=== PATIENT | female | born 1995 | race Hispanic/Latino ===

== ENCOUNTER 2024-07-11 14:30 | Outpatient (RCR) | payer OTHER, MEDICAID, SELFPAY ==
--- NOTE | 2024-06-06 15:49 | PT.OIE ---
Current Diagnoses Cystocele, unspecified (06/06/24) Visit Care Team Role Provider Type Yajaira Hernandez PA-C Attending Provider Non-Staff Family Provider Primary Care Provider Referring Provider Specialty: Medical Address: [address] [place] [address], [id number] Email: Physical Therapy Initial Evaluation PT-OP-A Visit Information Start: 06/03/24 17:54 Freq: Status: Active Protocol: Document 06/06/24 13:08 LRN (Rec: 06/06/24 15:44 LRN [id number]) Out-Patient Physical Therapy Visit Information Visit Information Visit Type Initial Evaluation Visit Note Flat Drier, Roseanne Woodward, present throughout evaluation. Visit Start Time 13:08 Visit Stop Time 14:10 Visit Number 1 Evaluation Information Evaluation Date 06/06/24 Precautions Precautions Per intake form: Depression, liver disease PT-OP-B Current Condition Start: 06/03/24 17:54 Freq: Status: Active Protocol: Document 06/06/24 13:08 LRN (Rec: 06/06/24 15:44 LRN [id number]) Current Condition History of Current Condition Onset Date 6 months Current Complaints Pain in lower abdomen sometimes, pain is strong like contraction. History of Current Condition Through tube repairer. States she hurts a lot down there ( pointing to lower abdomen) and states she was told her uterus was sitting down low; therefore referred to PT. Pt main c/o is that she has pain with intercourse, and afterwards. She notes a whitish discharge after intercourse. Prior Treatments and Tests Medication for the discharge - one tablet. (no longer taking) Developmental History Developmental History 3 children-vaginal births. Last was 5 yrs ago, children ages 9, 7, 5. With first and last births had difficulties (lower abdominal pain). Son was first , required forceps, has had pain afterward. Treatment Goals Patient/Caregiver Goals Pt goals: To not have pain anymore because can't have intercourse due to bad pain, wants another baby but hasn't been able to get . Pt agreeable to HEP. Personal Factors Other Personal Factors That May Effect Mother of 3 children, ages 9, Therapy/Recovery 7, 5. Pt is Maltese speaking individual requiring tube repairer, primary chipewwa language - czech. Works 8 hrs/day making [employer] requiring standing for job. PT-OP-C Subjective Start: 06/03/24 17:54 Freq: Status: Active Protocol: Document 06/06/24 13:08 LRN (Rec: 06/06/24 15:44 LRN [id number]) Patient Questionnaires Pelvic Pain and Urgency/Frequency Patient Symptom Scale Pelvic Pain Score 29/35 OP-PT Pain Assessment Location L lower abdomen Pain Location Details Across lower abdomen, L side Intensity 9 Scale Used Numeric (0 - 10) R lower abdomen Pain Location Details Across lower abdomen, R side Intensity 8 Scale Used Numeric (0 - 10) Comments Pain Comments Pain at pubic symphysis with mild separation noted. PT-OP-I Pelvic Floor Start: 06/03/24 17:54 Freq: Status: Active Protocol: Document 06/06/24 13:08 LRN (Rec: 06/06/24 15:44 LRN [id number]) Pelvic Floor Assessment Urine Other Urinary Symptoms No urinary symptoms Bowel Other Bowel Symptoms BM 3x/week. Eugene Stool Chart Comments Type 6. Pelvic Clock Pelvic Clock 12-3 Tenderness Pelvic Clock 3-6 Tenderness Pelvic Clock 6-9 Tenderness Pelvic Clock 9-12 Tenderness Prolapse Cystocele Grade 3 Perineal Descent Resting Present Bearing Present Contraction Ability Manual Muscle Testing Left 1 Manual Muscle Testing Right 1 Manual Muscle Testing Anterior 0 Manual Muscle Testing Posterior 2 Muscle Endurance (Seconds) 0 Number of Quick Contractions In 10 1 Seconds Comments Pelvic Floor Comments Redness at upper inner fold of the Labia Majora. PT-OP-J Posture/Palpation/Skin Start: 06/03/24 17:54 Freq: Status: Active Protocol: Document 06/06/24 13:08 LRN (Rec: 06/06/24 15:44 LRN [id number]) Posture Evaluation Position Standing Head/C-Spine Posture Forward Head L-Spine Posture Increased Lordosis Shoulder Posture (R) Elevated Pelvis Posture Anteriorly Tilted,(R) ASIS Posterior Knee Posture (L) Genu Varus,(R) Genu Varus Comments Posture Comments Straightened upper T/S. PT-OP-K Range of Motion Start: 06/03/24 17:54 Freq: Status: Active Protocol: Document 06/06/24 13:08 LRN (Rec: 06/06/24 15:44 LRN [id number]) Lumbar Spine Range of Motion Lumbar Spine Active Degrees Testing Position Standing Flexion 63 Extension 12 Rotation Left 50 Rotation Right 50 Lateral Flexion Left 18 Lateral Flexion Right 18 Hip Goniometric Range of Motion Hip Right Passive Testing Position Supine Internal Rotation 55 External Rotation 40 Left Passive Testing Position Supine Internal Rotation 50 External Rotation 40 PT-OP-M Strength Start: 06/03/24 17:54 Freq: Status: Active Protocol: Document 06/06/24 13:08 LRN (Rec: 06/06/24 15:44 LRN [id number]) Trunk Strength Trunk Manual Muscle Testing Core Stabilization Pt was not able to maintain core stability with MMT of LE' s. Hip Strength Hip Manual Muscle Testing Right Extension (S1) 3 Fair Internal Rotation 3 Fair Comments Strength is 5/5 except as indicated above. Left Flexion (L2) 4 Good Extension (S1) 3 Fair Adduction 3+ Fair+ Internal Rotation 3 Fair Comments Strength is 5/5 except as indicated above. PT-OP-Q Treatments Start: 06/03/24 17:54 Freq: Status: Active Protocol: Document 06/06/24 13:08 LRN (Rec: 06/06/24 15:44 LRN [id number]) Therapeutic Activity Therapeutic Activity Transfer training Name Scooting to L side, Supine<> sit log roll method with exhale on exertion. Reps/Minutes 2' Comments Pt required phys & verbal cuing for transfer. Self-Care/Home Management Treatment Education Other Education All education and information shared with pt was through an tube repairer. Informed pt that if an tube repairer is needed pt can request use of tube repairer or a phone tube repairer would be used. Extra time needed to discuss results of evaluation, goals, treatment, and plan of care ( POC) with pt (via tube repairer) , attendance/cx/dns policy reviewed; pt agreeable to evaluation, goals, treatment, attendance/cx/dns policy and POC. Activities Self-Care/Home Management Activities Issued self care program: sup to side, & sidelie to sit. I /S pt to perform transfer getting in/out of bed. Written I/S for sit<>stand transfer with exhale/Kegel. Issued & reviewed HEP: Kegel ex's and discussed exercise of Quick Flicks, Long Holds. PT-OP-T Assessment and Plan Start: 06/03/24 17:54 Freq: Status: Active Protocol: Document 06/06/24 13:08 LRN (Rec: 06/06/24 15:44 LRN [id number]) Physical Therapy Assessment Rehab Potential Rehabilitation Potential Good Evaluation Complexity Number of Personal Factors/Comorbidities 3 or More Number of Body Systems Impaired 4 or More Clinical Presentation at Evaluation Evolving Impairments Impairments Activity Tolerance,Pain, Posture,ROM,Soft Tissue Mobility,Strength,Transfers Goals Three Impairment Lower abdominal pain limiting standing time and ability to attend work. Short Term Goal (STG) Pt educated in proper standing posture to decrease strain at pubic symphysis. STG Duration 07/04/24 Android Programmer Goal (LTG) Improve abdominal soft tissue mobility and pelvic stability to minimze lower abdominal pain and pubic symphysis pain to 0-2/10, with pt able to tolerate baseline standing for her job. LTG Duration 12 wks-08/29/24 Two Impairment Pain with intercourse Short Term Goal (STG) Pt will be educated in pain management for intercourse ( excessive use of lubrication), and MD cream for tissue health. STG Duration 6 wks-07/18/24 Custodial Goal (LTG) Decrease lower abdominal pain with intercourse, with pt able to tolerate activity without pain. LTG Duration 12 wks-08/29/24 One Impairment Lacks appropriate self care HEP. Short Term Goal (STG) Pt educated and will demonstrate log roll transfer to lessen core abdominal pressure and educated in proper body mechanics for ADLs . 06/06/24: Pt educated in log roll method for supine>sit. STG Duration 07/04/24 Custodial Goal (LTG) Pt will be independent in appropriate self care HEP of PF/core strengthening & hip ( IR) stretches. LTG Duration 12 wks-08/29/24 Assessment Summary Assessment Pt is a 28 yo chipe[place] Maltese speaking female who presents with grade 3 cystocele in supine, Symphysis Pubis Dysfunction (SPD), PF tenderness, tenderness/redness on the R labia majora fold, both superficial and deep PF muscles around the PF clock, and tenderness in the mid and lower abdomen (level of the uterus), and her PF muscles are very weak. See recommendation below. She demonstrates postural changes of increased lordosis and possible pelvic obliquity as seen in standing (L SIJ is posterior). Hip ER mobility is limited as is strength of core and hip extensors/IR's, L hip flexors and AD's. Extra time was needed as a cushion former was needed throughout the evaluation. 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 Physical Therapy Plan Frequency and Duration Frequency of Treatment 1x/Week Duration of treatment (weeks) 12 Plan of Care Start Date 06/06/24 Plan of Care End Date 08/29/24 Therapeutic Interventions Therapeutic Interventions Home Exercise Program,Manual Therapy,Neuromuscular Re- education,Self-Care/Home Management,Soft Tissue Mobilization,Therapeutic Activities,Therapeutic Exercises Other Referrals/Consults Referrals/Consults Recommended Recommend pt be assessed for tissue health of her Labia majora inner fold and vaginal canal with possible use of vaginal cream to improve tissue health. Next Visit Focus/Plan Next Note Type Treatment Note Next Visit Plan Next: Trial stabilization for SPD (use of blue strap), and review/practice log roll & transfers to reduce core pressure, & Kegel ex's. Educated pt proper standing posture and body mechanics for job. Manual therapy for lower abdomen (urachus) and bladder/ uterus lift/?round lig. Ther Ex: stretch to hip ER's/ hamstings, and strengthen IR's , TA (4 pt, hands/knees push) /core strengthening ( it conor knee flex/ext). HEP: Pt to be on low level walking program. Vemg biofeedback PF strengthening or PF stim, when vaginal vault is no longer tender.
--- NOTE | 2024-06-06 15:50 | PT.OPPOC ---
Physical, Occupational & Speech Therapy At [facility] Current Diagnoses Cystocele, unspecified (06/06/24) Visit Care Team Role Provider Type Yajaira Hernandez PA-C Attending Provider Non-Staff Family Provider Primary Care Provider Referring Provider Specialty: Medical Address: [address] [place] [address], [id number] Email: Plan Of Care PT-OP-B Current Condition Start: 06/03/24 17:54 Freq: Status: Active Protocol: Document 06/06/24 13:08 LRN (Rec: 06/06/24 15:44 LRN [id number]) Current Condition History of Current Condition Onset Date 6 months Current Complaints Pain in lower abdomen sometimes, pain is strong like contraction. History of Current Condition Through manager spa. States she hurts a lot down there ( pointing to lower abdomen) and states she was told her uterus was sitting down low; therefore referred to PT. Pt main c/o is that she has pain with intercourse, and afterwards. She notes a whitish discharge after intercourse. Prior Treatments and Tests Medication for the discharge - one tablet. (no longer taking) Developmental History Developmental History 3 children-vaginal births. Last was 5 yrs ago, children ages 9, 7, 5. With first and last births had difficulties (lower abdominal pain). Son was first , required forceps, has had pain afterward. Treatment Goals Patient/Caregiver Goals Pt goals: To not have pain anymore because can't have intercourse due to bad pain, wants another baby but hasn't been able to get . Pt agreeable to HEP. Personal Factors Other Personal Factors That May Effect Mother of 3 children, ages 9, Therapy/Recovery 7, 5. Pt is Turkish speaking individual requiring manager spa, primary chilkat language - ghanaian. Works 8 hrs/day making [employer] requiring standing for job. PT-OP-T Assessment and Plan Start: 06/03/24 17:54 Freq: Status: Active Protocol: Document 06/06/24 13:08 LRN (Rec: 06/06/24 15:44 LRN [id number]) Physical Therapy Assessment Rehab Potential Rehabilitation Potential Good Evaluation Complexity Number of Personal Factors/Comorbidities 3 or More Number of Body Systems Impaired 4 or More Clinical Presentation at Evaluation Evolving Impairments Impairments Activity Tolerance,Pain, Posture,ROM,Soft Tissue Mobility,Strength,Transfers Goals Three Impairment Lower abdominal pain limiting standing time and ability to attend work. Short Term Goal (STG) Pt educated in proper standing posture to decrease strain at pubic symphysis. STG Duration 07/04/24 Penitentiary Goal (LTG) Improve abdominal soft tissue mobility and pelvic stability to minimze lower abdominal pain and pubic symphysis pain to 0-2/10, with pt able to tolerate baseline standing for her job. LTG Duration 12 wks-08/29/24 Two Impairment Pain with intercourse Short Term Goal (STG) Pt will be educated in pain management for intercourse ( excessive use of lubrication), and MD cream for tissue health. STG Duration 6 wks-07/18/24 Penitentiary Goal (LTG) Decrease lower abdominal pain with intercourse, with pt able to tolerate activity without pain. LTG Duration 12 wks-08/29/24 One Impairment Lacks appropriate self care HEP. Short Term Goal (STG) Pt educated and will demonstrate log roll transfer to lessen core abdominal pressure and educated in proper body mechanics for ADLs . 06/06/24: Pt educated in log roll method for supine>sit. STG Duration 07/04/24 Penitentiary Goal (LTG) Pt will be independent in appropriate self care HEP of PF/core strengthening & hip ( IR) stretches. LTG Duration 12 wks-08/29/24 Assessment Summary Assessment Pt is a 28 yo [place]il[place] Turkish speaking female who presents with grade 3 cystocele in supine, Symphysis Pubis Dysfunction (SPD), PF tenderness, tenderness/redness on the R labia majora fold, both superficial and deep PF muscles around the PF clock, and tenderness in the mid and lower abdomen (level of the uterus), and her PF muscles are very weak. See recommendation below. She demonstrates postural changes of increased lordosis and possible pelvic obliquity as seen in standing (L SIJ is posterior). Hip ER mobility is limited as is strength of core and hip extensors/IR's, L hip flexors and AD's. Extra time was needed as a bonbon cream warmer was needed throughout the evaluation. 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 Physical Therapy Plan Frequency and Duration Frequency of Treatment 1x/Week Duration of treatment (weeks) 12 Plan of Care Start Date 06/06/24 Plan of Care End Date 08/29/24 Therapeutic Interventions Therapeutic Interventions Home Exercise Program,Manual Therapy,Neuromuscular Re- education,Self-Care/Home Management,Soft Tissue Mobilization,Therapeutic Activities,Therapeutic Exercises Other Referrals/Consults Referrals/Consults Recommended Recommend pt be assessed for tissue health of her Labia majora inner fold and vaginal canal with possible use of vaginal cream to improve tissue health. Next Visit Focus/Plan Next Note Type Treatment Note Next Visit Plan Next: Trial stabilization for SPD (use of blue strap), and review/practice log roll & transfers to reduce core pressure, & Kegel ex's. Educated pt proper standing posture and body mechanics for job. Manual therapy for lower abdomen (urachus) and bladder/ uterus lift/?round lig. Ther Ex: stretch to hip ER's/ hamstings, and strengthen IR's , TA (4 pt, hands/knees push) /core strengthening ( it conor knee flex/ext). HEP: Pt to be on low level walking program. Vemg biofeedback PF strengthening or PF stim, when vaginal vault is no longer tender. Plan of Care Dates Plan of Care Start Date 06/06/24 Plan of Care End Date 08/29/24 Electronically Signed by: Yareli Arambula, PT 06/06/24 2323 If you are in agreement with this Plan of Care, please return a signed and dated copy. I have reviewed this Plan of Care and certify that the skilled therapy services above are required to meet the patient?s needs. Physician Signature Date Printed Name and Credentials Clinical Instructor Signature Printed Name and Credentials
--- NOTE | 2024-06-13 16:19 | PT.OTN ---
Current Diagnoses Cystocele, unspecified (06/06/24) Physical Therapy Treatment Note PT-OP-A Visit Information Start: 06/03/24 17:54 Freq: Status: Active Protocol: Document 06/13/24 10:36 LRN (Rec: 06/13/24 11:21 LRN [id number]) Out-Patient Physical Therapy Visit Information Visit Information Visit Type Treatment Note Visit Note Marketing Traffic Coordinator, Roseanne Woodward, present throughout evaluation. Visit Start Time 10:36 Visit Stop Time 11:19 Visit Number 2 Evaluation Information Evaluation Date 06/06/24 Precautions Precautions Per intake form: Depression, liver disease PT-OP-B Current Condition Start: 06/03/24 17:54 Freq: Status: Active Protocol: Document 06/06/24 13:08 LRN (Rec: 06/06/24 15:44 LRN [id number]) Current Condition History of Current Condition Onset Date 6 months Current Complaints Pain in lower abdomen sometimes, pain is strong like contraction. History of Current Condition Through tank setter helper. States she hurts a lot down there ( pointing to lower abdomen) and states she was told her uterus was sitting down low; therefore referred to PT. Pt main c/o is that she has pain with intercourse, and afterwards. She notes a whitish discharge after intercourse. Prior Treatments and Tests Medication for the discharge - one tablet. (no longer taking) Developmental History Developmental History 3 children-vaginal births. Last was 5 yrs ago, children ages 9, 7, 5. With first and last births had difficulties (lower abdominal pain). Son was first , required forceps, has had pain afterward. Treatment Goals Patient/Caregiver Goals Pt goals: To not have pain anymore because can't have intercourse due to bad pain, wants another baby but hasn't been able to get . Pt agreeable to HEP. Personal Factors Other Personal Factors That May Effect Mother of 3 children, ages 9, Therapy/Recovery 7, 5. Pt is Sami speaking individual requiring tank setter helper, primary [place] language - panamanian. Works 8 hrs/day making [employer] requiring standing for job. PT-OP-C Subjective Start: 06/03/24 17:54 Freq: Status: Active Protocol: Document 06/13/24 10:36 LRN (Rec: 06/13/24 11:21 LRN [id number]) OP-PT Subjective Patient Comments Patient Comments Practiced how to get out of bed and breathing carrying things. Haven't slept well and had a lot of appts. In a little pain because on her period, pain rated 5/10 in lower abdomen. PT-OP-I Pelvic Floor Start: 06/03/24 17:54 Freq: Status: Active Protocol: Document 06/06/24 13:08 LRN (Rec: 06/06/24 15:44 LRN [id number]) Pelvic Floor Assessment Urine Other Urinary Symptoms No urinary symptoms Bowel Other Bowel Symptoms BM 3x/week. [place] Stool Chart Comments Type 6. Pelvic Clock Pelvic Clock 12-3 Tenderness Pelvic Clock 3-6 Tenderness Pelvic Clock 6-9 Tenderness Pelvic Clock 9-12 Tenderness Prolapse Cystocele Grade 3 Perineal Descent Resting Present Bearing Present Contraction Ability Manual Muscle Testing Left 1 Manual Muscle Testing Right 1 Manual Muscle Testing Anterior 0 Manual Muscle Testing Posterior 2 Muscle Endurance (Seconds) 0 Number of Quick Contractions In 10 1 Seconds Comments Pelvic Floor Comments Redness at upper inner fold of the Labia Majora. PT-OP-J Posture/Palpation/Skin Start: 06/03/24 17:54 Freq: Status: Active Protocol: Document 06/06/24 13:08 LRN (Rec: 06/06/24 15:44 LRN [id number]) Posture Evaluation Position Standing Head/C-Spine Posture Forward Head L-Spine Posture Increased Lordosis Shoulder Posture (R) Elevated Pelvis Posture Anteriorly Tilted,(R) ASIS Posterior Knee Posture (L) Genu Varus,(R) Genu Varus Comments Posture Comments Straightened upper T/S. PT-OP-K Range of Motion Start: 06/03/24 17:54 Freq: Status: Active Protocol: Document 06/06/24 13:08 LRN (Rec: 06/06/24 15:44 LRN [id number]) Lumbar Spine Range of Motion Lumbar Spine Active Degrees Testing Position Standing Flexion 63 Extension 12 Rotation Left 50 Rotation Right 50 Lateral Flexion Left 18 Lateral Flexion Right 18 Hip Goniometric Range of Motion Hip Right Passive Testing Position Supine Internal Rotation 55 External Rotation 40 Left Passive Testing Position Supine Internal Rotation 50 External Rotation 40 PT-OP-M Strength Start: 06/03/24 17:54 Freq: Status: Active Protocol: Document 06/06/24 13:08 LRN (Rec: 06/06/24 15:44 LRN [id number]) Trunk Strength Trunk Manual Muscle Testing Core Stabilization Pt was not able to maintain core stability with MMT of LE' s. Hip Strength Hip Manual Muscle Testing Right Extension (S1) 3 Fair Internal Rotation 3 Fair Comments Strength is 5/5 except as indicated above. Left Flexion (L2) 4 Good Extension (S1) 3 Fair Adduction 3+ Fair+ Internal Rotation 3 Fair Comments Strength is 5/5 except as indicated above. PT-OP-Q Treatments Start: 06/03/24 17:54 Freq: Status: Active Protocol: Document 06/13/24 10:36 LRN (Rec: 06/13/24 11:21 LRN [id number]) Therapeutic Exercises Supine Exercises TA tightening Reps/Minutes 10' Comments Extra time needed for training through tank setter helper Sidelying Exercises TA tightening Side bilateral Reps/Minutes 3 breath holds x 8 each side. Comments Extra time to train using tank setter helper. Therapeutic Activity Therapeutic Activity Transfer training Name Stand<>Sit<>Supine<>sit log roll method with exhale on exertion. Reps/Minutes 6' Comments Pt required phys & verbal cuing for transfer. Much training needed to maintain stable core. Pt kept rotating at trunk Self-Care/Home Management Treatment Education Other Education Extended discussion through tank setter helper regarding use of abdominal support or strap around SIJ to decrease lower abdominal pain. Pt interested in belt, but encouraged pt to obtain control top underwear for abdominal support after determining pt did not have a belt available at home to try for pain management. Activities Self-Care/Home Management Activities Issued & reviewed through tank setter helper HEP Handouts: TA strengthening in supine, sit & 4 pt. PT-OP-T Assessment and Plan Start: 06/03/24 17:54 Freq: Status: Active Protocol: Document 06/13/24 10:36 LRN (Rec: 06/13/24 11:21 LRN [id number]) Physical Therapy Assessment Goals Three Impairment Lower abdominal pain limiting standing time and ability to attend work. Short Term Goal (STG) Pt educated in proper standing posture to decrease strain at pubic symphysis. STG Duration 07/04/24 Half-Way Goal (LTG) Improve abdominal soft tissue mobility and pelvic stability to minimze lower abdominal pain and pubic symphysis pain to 0-2/10, with pt able to tolerate baseline standing for her job. LTG Duration 12 wks-08/29/24 Two Impairment Pain with intercourse Short Term Goal (STG) Pt will be educated in pain management for intercourse ( excessive use of lubrication), and cream for tissue health. STG Duration 6 wks-07/18/24 Half-Way Goal (LTG) Decrease lower abdominal pain with intercourse, with pt able to tolerate activity without pain. LTG Duration 12 wks-08/29/24 One Impairment Lacks appropriate self care HEP. Short Term Goal (STG) Pt educated and will demonstrate log roll transfer to lessen core abdominal pressure and educated in proper body mechanics for ADLs . 06/06/24: Pt educated in log roll method for supine>sit. 06/13/24: Reviewed log roll method with breath/Kegel STG Duration 07/04/24 progressed 06/13/24 (educ body mech/ADLs) Target Developer Goal (LTG) Pt will be independent in appropriate self care HEP of PF/core strengthening & hip ( IR) stretches. 06/13/24: HEP: TA strengthening in sup, sit, 4 pt LTG Duration 12 wks-08/29/24 progressed 06/13/24 Assessment Summary Assessment 28 yo [place] Sami mother of three, with grade 3 cystocele , SPD. Tenderness present around superficial/deep PF clock and mid/lower abdomen, R labia majora fold tenderness/ redness, PF muscles are very weak, as well as core and hip extensors/IR's, L hip flexors and AD's. Hip ER mobility is limited. She demonstrates postural changes of increased lordosis and possible pelvic obliquity (L SIJ is posterior) . Extra time was needed as a financial foundations associate was needed throughout the treatment. Today, pt had lwer abdominal pain relief with blue strap around her lower abdomen and SIJ. Physical Therapy Plan Frequency and Duration Frequency of Treatment 1x/Week Duration of treatment (weeks) 12 Plan of Care Start Date 06/06/24 Plan of Care End Date 08/29/24 Next Visit Focus/Plan Next Note Type Treatment Note Next Visit Plan Next: Trial stabilization for SPD (SIJ support). Check for pt compliance with log roll & transfers (to reduce core pressure) & Kegel ex's. Educated pt proper standing posture and body mechanics for job. Review HEP: TA (4 pt, hands/knees push) /core strengthening Manual therapy for lower abdomen (urachus) and bladder/ uterus lift/?round lig. Ther Ex: stretch to hip ER's/ hamstings, and strengthen IR's . HEP: Pt to be on low level walking program. When vaginal vault no longer tender try Vemg biofeedback PF strengthening or PF stim.
--- NOTE | 2024-06-20 15:53 | PT.OTN ---
Current Diagnoses Cystocele, unspecified (06/20/24) Physical Therapy Treatment Note PT-OP-A Visit Information Start: 06/03/24 17:54 Freq: Status: Active Protocol: Document 06/20/24 14:39 LRN (Rec: 06/20/24 15:53 LRN [id number]) Out-Patient Physical Therapy Visit Information Visit Information Visit Type Treatment Note Visit Note Paratransit Driver, Gerard Villegas, present throughout evaluation. Visit Start Time 14:39 Visit Stop Time 15:19 Visit Number 3 Evaluation Information Evaluation Date 06/06/24 Precautions Precautions Per intake form: Depression, liver disease PT-OP-B Current Condition Start: 06/03/24 17:54 Freq: Status: Active Protocol: Document 06/06/24 13:08 LRN (Rec: 06/06/24 15:44 LRN [id number]) Current Condition History of Current Condition Onset Date 6 months Current Complaints Pain in lower abdomen sometimes, pain is strong like contraction. History of Current Condition Through commercial subcontractor. States she hurts a lot down there ( pointing to lower abdomen) and states she was told her uterus was sitting down low; therefore referred to PT. Pt main c/o is that she has pain with intercourse, and afterwards. She notes a whitish discharge after intercourse. Prior Treatments and Tests Medication for the discharge - one tablet. (no longer taking) Developmental History Developmental History 3 children-vaginal births. Last was 5 yrs ago, children ages 9, 7, 5. With first and last births had difficulties (lower abdominal pain). Son was first , required forceps, has had pain afterward. Treatment Goals Patient/Caregiver Goals Pt goals: To not have pain anymore because can't have intercourse due to bad pain, wants another baby but hasn't been able to get . Pt agreeable to HEP. Personal Factors Other Personal Factors That May Effect Mother of 3 children, ages 9, Therapy/Recovery 7, 5. Pt is Mosotho speaking individual requiring commercial subcontractor, primary [place] language - estonian. Works 8 hrs/day making [employer] requiring standing for job. PT-OP-C Subjective Start: 06/03/24 17:54 Freq: Status: Active Protocol: Document 06/20/24 14:39 LRN (Rec: 06/20/24 15:53 LRN [id number]) OP-PT Subjective Patient Comments Patient Comments States last time doing well, but now worse. Back is more painful. Not too much front pain. Did wear a belt around the hips at work and has decreased the pain in the front. PT-OP-I Pelvic Floor Start: 06/03/24 17:54 Freq: Status: Active Protocol: Document 06/06/24 13:08 LRN (Rec: 06/06/24 15:44 LRN [id number]) Pelvic Floor Assessment Urine Other Urinary Symptoms No urinary symptoms Bowel Other Bowel Symptoms BM 3x/week. [place] Stool Chart Comments Type 6. Pelvic Clock Pelvic Clock 12-3 Tenderness Pelvic Clock 3-6 Tenderness Pelvic Clock 6-9 Tenderness Pelvic Clock 9-12 Tenderness Prolapse Cystocele Grade 3 Perineal Descent Resting Present Bearing Present Contraction Ability Manual Muscle Testing Left 1 Manual Muscle Testing Right 1 Manual Muscle Testing Anterior 0 Manual Muscle Testing Posterior 2 Muscle Endurance (Seconds) 0 Number of Quick Contractions In 10 1 Seconds Comments Pelvic Floor Comments Redness at upper inner fold of the Labia Majora. PT-OP-J Posture/Palpation/Skin Start: 06/03/24 17:54 Freq: Status: Active Protocol: Document 06/06/24 13:08 LRN (Rec: 06/06/24 15:44 LRN [id number]) Posture Evaluation Position Standing Head/C-Spine Posture Forward Head L-Spine Posture Increased Lordosis Shoulder Posture (R) Elevated Pelvis Posture Anteriorly Tilted,(R) ASIS Posterior Knee Posture (L) Genu Varus,(R) Genu Varus Comments Posture Comments Straightened upper T/S. PT-OP-K Range of Motion Start: 06/03/24 17:54 Freq: Status: Active Protocol: Document 06/06/24 13:08 LRN (Rec: 06/06/24 15:44 LRN [id number]) Lumbar Spine Range of Motion Lumbar Spine Active Degrees Testing Position Standing Flexion 63 Extension 12 Rotation Left 50 Rotation Right 50 Lateral Flexion Left 18 Lateral Flexion Right 18 Hip Goniometric Range of Motion Hip Right Passive Testing Position Supine Internal Rotation 55 External Rotation 40 Left Passive Testing Position Supine Internal Rotation 50 External Rotation 40 PT-OP-M Strength Start: 06/03/24 17:54 Freq: Status: Active Protocol: Document 06/06/24 13:08 LRN (Rec: 06/06/24 15:44 LRN [id number]) Trunk Strength Trunk Manual Muscle Testing Core Stabilization Pt was not able to maintain core stability with MMT of LE' s. Hip Strength Hip Manual Muscle Testing Right Extension (S1) 3 Fair Internal Rotation 3 Fair Comments Strength is 5/5 except as indicated above. Left Flexion (L2) 4 Good Extension (S1) 3 Fair Adduction 3+ Fair+ Internal Rotation 3 Fair Comments Strength is 5/5 except as indicated above. PT-OP-Q Treatments Start: 06/03/24 17:54 Freq: Status: Active Protocol: Document 06/20/24 14:39 LRN (Rec: 06/20/24 15:53 LRN [id number]) Therapeutic Exercises Supine Exercises TA tightening Supine Exercise Name Jimmy heel slide Reps/Minutes 4' Comments Pt told to DC for now due to onset of LBP with ex. Prone Exercises BRO Reps/Minutes 2' Sidelying Exercises TA tightening Side bilateral Reps/Minutes (8') 3 breath holds x 5 each side. Comments Extra time to train using commercial subcontractor. Other Exercises 4 pt Other Exercise Name TA tightening Reps/Minutes (10') 3 breath hold x 10 Comments Extra time needed to get pt onto her hands/knees for ex Therapeutic Activity Therapeutic Activity Lifting/moving Name Body mechanics training for lifting at work and for rotating with wgt. Reps/Minutes 4' Transfer training Name Stand<>Sit<>Supine<>sit log roll method with exhale on exertion. Reps/Minutes 6' Comments Pt required phys & verbal cuing for transfer. Much training needed to maintain stable core. Pt kept rotating at trunk Self-Care/Home Management Treatment Education Other Education Pt educated in fit and donning of SIJ/Pubic symphysis belt with discussion of how pt can obtain belt. Recommended pt check online for donald and issued handout for name of belt. Activities Self-Care/Home Management Activities Issued HEP: 4 pt: TA tightening, and BRO trunk extension. PT-OP-T Assessment and Plan Start: 06/03/24 17:54 Freq: Status: Active Protocol: Document 06/20/24 14:39 LRN (Rec: 06/20/24 15:53 LRN [id number]) Physical Therapy Assessment Goals Three Impairment Lower abdominal pain limiting standing time and ability to attend work. Short Term Goal (STG) Pt educated in proper standing posture to decrease strain at pubic symphysis. STG Duration 07/04/24 Usp Goal (LTG) Improve abdominal soft tissue mobility and pelvic stability to minimze lower abdominal pain and pubic symphysis pain to 0-2/10, with pt able to tolerate baseline standing for her job. LTG Duration 12 wks-08/29/24 Two Impairment Pain with intercourse Short Term Goal (STG) Pt will be educated in pain management for intercourse ( excessive use of lubrication), and MD cream for tissue health. STG Duration 6 wks-07/18/24 Industrial Design Engineer Goal (LTG) Decrease lower abdominal pain with intercourse, with pt able to tolerate activity without pain. LTG Duration 12 wks-08/29/24 One Impairment Lacks appropriate self care HEP. Short Term Goal (STG) Pt educated and will demonstrate log roll transfer to lessen core abdominal pressure and educated in proper body mechanics for ADLs . 06/06/24: Pt educated in log roll method for supine>sit. 06/13/24: Reviewed log roll method with breath/Kegel. 06/20/24: Pt educated in correct body mechanics for lifting and moving objects for work. STG Duration 07/04/24 progressed 06/20/24 (educ body mech for ADLs) Industrial Design Engineer Goal (LTG) Pt will be independent in appropriate self care HEP of PF/core strengthening & hip ( IR) stretches. 06/13/24: HEP: TA strengthening in sup, sit, 4 pt. 06/20/24: HEP: HEP: 4 pt TA tightening, and BRO trunk extension. LTG Duration 12 wks-08/29/24 progressed 06/20/24 Assessment Summary Assessment 28 yo [place] female, with grade 3 cystocele, SPD. Initially tenderness around superficial/deep PF clock and mid/lower abdomen, R labia majora fold tenderness/redness , very weak PF, core & hip ext/flexors/IR/AD muscles. Hip ER mobility is limited. Postural changes of increased lordosis and possible pelvic obliquity (L SIJ is posterior) . Today, extra time needed as a child care sitter was needed throughout the treatment. Not obvious that pt is doing proper log roll method for transfers. Her LBP appears worse than abdominal pain, rated 7/10. She felt use of SIJ belt for SPD was helpful in decreasing her pain and she will purchase online. Pt had poor body mechanics for lifting at work, but much improved after training. Much extra time was taken to teach pt HEP as explanation was through commercial subcontractor, who was behind a curtain. Physical Therapy Plan Frequency and Duration Frequency of Treatment 1x/Week Duration of treatment (weeks) 12 Plan of Care Start Date 06/06/24 Plan of Care End Date 08/29/24 Next Visit Focus/Plan Next Note Type Treatment Note Next Visit Plan Next: Assess if pt obtained SIJ/SPD support online. Check for pt compliance with log roll & transfers (to reduce core pressure) & Kegel ex's. Review HEP: TA (4 pt, hands/ knees push). Educate proper body mechanics for ADLs & in proper standing posture to decrease strain at pubic symphysis. Manual therapy for lower abdomen (urachus) and bladder/ uterus lift/?round lig. Ther Ex: stretch to hip ER's/ hamstings, and strengthen IR's . HEP: Pt to be on low level walking program. When vaginal vault no longer tender try Vemg biofeedback PF strengthening or PF stim.
--- NOTE | 2024-06-23 16:14 | PT.OTN ---
Current Diagnoses Cystocele, unspecified (06/23/24) Physical Therapy Treatment Note PT-OP-A Visit Information Start: 06/03/24 17:54 Freq: Status: Active Protocol: Document 06/23/24 13:02 LRN (Rec: 06/23/24 13:46 LRN [id number]) Out-Patient Physical Therapy Visit Information Visit Information Visit Type Treatment Note Visit Note Contract Technician, Beto present per phone throughout evaluation. Visit Start Time 13:02 Visit Stop Time 13:42 Visit Number 4 Evaluation Information Evaluation Date 06/06/24 Precautions Precautions Per intake form: Depression, liver disease PT-OP-B Current Condition Start: 06/03/24 17:54 Freq: Status: Active Protocol: Document 06/06/24 13:08 LRN (Rec: 06/06/24 15:44 LRN [id number]) Current Condition History of Current Condition Onset Date 6 months Current Complaints Pain in lower abdomen sometimes, pain is strong like contraction. History of Current Condition Through spanish medical interpreter. States she hurts a lot down there ( pointing to lower abdomen) and states she was told her uterus was sitting down low; therefore referred to PT. Pt main c/o is that she has pain with intercourse, and afterwards. She notes a whitish discharge after intercourse. Prior Treatments and Tests Medication for the discharge - one tablet. (no longer taking) Developmental History Developmental History 3 children-vaginal births. Last was 5 yrs ago, children ages 9, 7, 5. With first and last births had difficulties (lower abdominal pain). Son was first , required forceps, has had pain afterward. Treatment Goals Patient/Caregiver Goals Pt goals: To not have pain anymore because can't have intercourse due to bad pain, wants another baby but hasn't been able to get . Pt agreeable to HEP. Personal Factors Other Personal Factors That May Effect Mother of 3 children, ages 9, Therapy/Recovery 7, 5. Pt is Uruguayan speaking individual requiring spanish medical interpreter, primary [place] language - yemeni. Works 8 hrs/day making [employer] requiring standing for job. PT-OP-C Subjective Start: 06/03/24 17:54 Freq: Status: Active Protocol: Document 06/23/24 13:02 LRN (Rec: 06/23/24 13:46 LRN [id number]) OP-PT Subjective Patient Comments Patient Comments Per spanish medical interpreter pt reports no change. States she did not have time to check into getting a SP belt. Lower abdominal pain rated 7-8/10, no low back pain. PT-OP-I Pelvic Floor Start: 06/03/24 17:54 Freq: Status: Active Protocol: Document 06/06/24 13:08 LRN (Rec: 06/06/24 15:44 LRN [id number]) Pelvic Floor Assessment Urine Other Urinary Symptoms No urinary symptoms Bowel Other Bowel Symptoms BM 3x/week. [place] Stool Chart Comments Type 6. Pelvic Clock Pelvic Clock 12-3 Tenderness Pelvic Clock 3-6 Tenderness Pelvic Clock 6-9 Tenderness Pelvic Clock 9-12 Tenderness Prolapse Cystocele Grade 3 Perineal Descent Resting Present Bearing Present Contraction Ability Manual Muscle Testing Left 1 Manual Muscle Testing Right 1 Manual Muscle Testing Anterior 0 Manual Muscle Testing Posterior 2 Muscle Endurance (Seconds) 0 Number of Quick Contractions In 10 1 Seconds Comments Pelvic Floor Comments Redness at upper inner fold of the Labia Majora. PT-OP-J Posture/Palpation/Skin Start: 06/03/24 17:54 Freq: Status: Active Protocol: Document 06/06/24 13:08 LRN (Rec: 06/06/24 15:44 LRN [id number]) Posture Evaluation Position Standing Head/C-Spine Posture Forward Head L-Spine Posture Increased Lordosis Shoulder Posture (R) Elevated Pelvis Posture Anteriorly Tilted,(R) ASIS Posterior Knee Posture (L) Genu Varus,(R) Genu Varus Comments Posture Comments Straightened upper T/S. PT-OP-K Range of Motion Start: 06/03/24 17:54 Freq: Status: Active Protocol: Document 06/06/24 13:08 LRN (Rec: 06/06/24 15:44 LRN [id number]) Lumbar Spine Range of Motion Lumbar Spine Active Degrees Testing Position Standing Flexion 63 Extension 12 Rotation Left 50 Rotation Right 50 Lateral Flexion Left 18 Lateral Flexion Right 18 Hip Goniometric Range of Motion Hip Right Passive Testing Position Supine Internal Rotation 55 External Rotation 40 Left Passive Testing Position Supine Internal Rotation 50 External Rotation 40 PT-OP-M Strength Start: 06/03/24 17:54 Freq: Status: Active Protocol: Document 06/06/24 13:08 LRN (Rec: 06/06/24 15:44 LRN [id number]) Trunk Strength Trunk Manual Muscle Testing Core Stabilization Pt was not able to maintain core stability with MMT of LE' s. Hip Strength Hip Manual Muscle Testing Right Extension (S1) 3 Fair Internal Rotation 3 Fair Comments Strength is 5/5 except as indicated above. Left Flexion (L2) 4 Good Extension (S1) 3 Fair Adduction 3+ Fair+ Internal Rotation 3 Fair Comments Strength is 5/5 except as indicated above. PT-OP-Q Treatments Start: 06/03/24 17:54 Freq: Status: Active Protocol: Document 06/23/24 13:02 LRN (Rec: 06/23/24 13:46 LRN [id number]) Therapeutic Exercises Supine Exercises LE Roll in/out Reps/Minutes 10x Jimmy BKFO/TB Equipment Used Lev 1 TB Reps/Minutes 15x Comments No c/o pain; cued to Tight TA & move legs same time. TA tightening Supine Exercise Name Jimmy heel slide Reps/Minutes 4' Comments Hold due to pain at SP Sidelying Exercises Clamshell Side bilateral Reps/Minutes 15x Comments Xtra time for trng to stab core and move just knee to ceiling. TA tightening Side bilateral Reps/Minutes (8') 3 breath holds x 5 each side. Comments Extra time to train using spanish medical interpreter. Sitting Exercises Jimmy BKFO/TB Reps/Minutes 15x Other Exercises 4 pt Other Exercise Name TA tightening Reps/Minutes (10') 3 breath hold x 2 Comments Extra time for review as pt did LB stretch instead. Self-Care/Home Management Treatment Activities Self-Care/Home Management Activities I/S pt to do (sidelie) TA tightening or in any position 15x 2 twice a day and clamshell twice a day. Issued & reviewed HEP: Sidelie Clamshell and sitting BKFO to be done in supine or sit, and supine LE roll in/out . Issued Lev 1 TBand for HEP . PT-OP-T Assessment and Plan Start: 06/03/24 17:54 Freq: Status: Active Protocol: Document 06/23/24 13:02 LRN (Rec: 06/23/24 13:46 LRN [id number]) Physical Therapy Assessment Goals Three Impairment Lower abdominal pain limiting standing time and ability to attend work. Short Term Goal (STG) Pt educated in proper standing posture to decrease strain at pubic symphysis. STG Duration 07/04/24 Fpc Goal (LTG) Improve abdominal soft tissue mobility and pelvic stability to minimze lower abdominal pain and pubic symphysis pain to 0-2/10, with pt able to tolerate baseline standing for her job. LTG Duration 12 wks-08/29/24 Two Impairment Pain with intercourse Short Term Goal (STG) Pt will be educated in pain management for intercourse ( excessive use of lubrication), and MD cream for tissue health. STG Duration 6 wks-07/18/24 Fpc Goal (LTG) Decrease lower abdominal pain with intercourse, with pt able to tolerate activity without pain. LTG Duration 12 wks-08/29/24 One Impairment Lacks appropriate self care HEP. Short Term Goal (STG) Pt educated and will demonstrate log roll transfer to lessen core abdominal pressure and educated in proper body mechanics for ADLs . 06/06/24: Pt educated in log roll method for supine>sit. 06/13/24: Reviewed log roll method with breath/Kegel. 06/20/24: Pt educated in correct body mechanics for lifting and moving objects for work. STG Duration 07/04/24 progressed 06/20/24 (educ body mech for ADLs) Fpc Goal (LTG) Pt will be independent in appropriate self care HEP of PF/core strengthening & hip ( IR) stretches. 06/13/24: HEP: TA strengthening in sup, sit, 4 pt. 06/20/24: HEP: HEP: 4 pt TA tightening, and BRO trunk extension. 06/23/24: HEP: Clamshell/ Reverse clam is not painful. HEP: Sidelie Clamshell and sitting BKFO to be done in supine or sit, and supine LE roll in/out. Issued Lev 1 TBand for HEP. LTG Duration 12 wks-08/29/24 progressed 06/23/24 Assessment Summary Assessment 28 yo [place] female, with grade 3 cystocele, SPD. Initially tenderness around superficial/deep PF clock and mid/lower abdomen, R labia majora fold tenderness/redness , very weak PF, core & hip ext/flexors/IR/AD muscles. Postural changes of increased lordosis and possible pelvic obliquity (L SIJ is posterior) . Extra time needed as spanish medical interpreter was needed throughout treatment session. Today, pt showed improved tolerance to hip ER, she needed review of log roll transfer and HEP of 4 pt TA tightening. Pt able to do all hip strengthening ex's without SPD pain. Physical Therapy Plan Frequency and Duration Frequency of Treatment 1x/Week Duration of treatment (weeks) 12 Plan of Care Start Date 06/06/24 Plan of Care End Date 08/29/24 Next Visit Focus/Plan Next Note Type Treatment Note Next Visit Plan Next: Assess if pt obtained SIJ/SPD support online. Check for pt compliance with log roll & transfers (to reduce core pressure) & Kegel ex's. Review HEP: TA (4 pt, hands/ knees push). Add HEP: Hip ER (fig4) & hamstring stretch, hip strengthening: ext/IR/and slowly progress L flex/AD muscles. Educate proper body mechanics for ADLs & in proper standing posture to decrease strain at pubic symphysis. Manual therapy for lower abdomen (urachus) and bladder/ uterus lift/?round lig and check for sacral balancing need. HEP: Pt to be on low level walking program. When vaginal vault no longer tender try Vemg biofeedback PF strengthening or PF stim.
--- NOTE | 2024-07-11 16:05 | PT.OTN ---
Current Diagnoses Cystocele, unspecified (07/11/24) Physical Therapy Treatment Note PT-OP-A Visit Information Start: 06/03/24 17:54 Freq: Status: Active Protocol: Document 07/11/24 14:38 LRN (Rec: 07/11/24 15:53 LRN [id number]) Out-Patient Physical Therapy Visit Information Visit Information Visit Type Treatment Note Visit Note Coffee Sommelier, Roseanne Woodward, present per phone throughout evaluation. Visit Start Time 14:38 Visit Stop Time 15:23 Visit Number 5 Evaluation Information Evaluation Date 06/06/24 Precautions Precautions Per intake form: Depression, liver disease PT-OP-B Current Condition Start: 06/03/24 17:54 Freq: Status: Active Protocol: Document 06/06/24 13:08 LRN (Rec: 06/06/24 15:44 LRN [id number]) Current Condition History of Current Condition Onset Date 6 months Current Complaints Pain in lower abdomen sometimes, pain is strong like contraction. History of Current Condition Through medical interpreter. States she hurts a lot down there ( pointing to lower abdomen) and states she was told her uterus was sitting down low; therefore referred to PT. Pt main c/o is that she has pain with intercourse, and afterwards. She notes a whitish discharge after intercourse. Prior Treatments and Tests Medication for the discharge - one tablet. (no longer taking) Developmental History Developmental History 3 children-vaginal births. Last was 5 yrs ago, children ages 9, 7, 5. With first and last births had difficulties (lower abdominal pain). Son was first , required forceps, has had pain afterward. Treatment Goals Patient/Caregiver Goals Pt goals: To not have pain anymore because can't have intercourse due to bad pain, wants another baby but hasn't been able to get . Pt agreeable to HEP. Personal Factors Other Personal Factors That May Effect Mother of 3 children, ages 9, Therapy/Recovery 7, 5. Pt is [place]or[place] speaking individual requiring medical interpreter, primary [place] language - haitian. Works 8 hrs/day making [employer] requiring standing for job. PT-OP-C Subjective Start: 06/03/24 17:54 Freq: Status: Active Protocol: Document 07/11/24 14:38 LRN (Rec: 07/11/24 15:53 LRN [id number]) OP-PT Subjective Patient Comments Patient Comments Per medical interpreter, pt reports no changes. States she has a SI belt and is not working anymore. Not wearing the belt at home because it gives her more pain. Requested pt bring in the belt to see if it works. States she won't be coming in again because she feels it is not helping her at all and she doesn't have a car and she is way too stressed, so she is canceling the rest of her appointments. Patient Questionnaires Pelvic Pain and Urgency/Frequency Patient Symptom Scale Pelvic Pain Score 27 PT-OP-I Pelvic Floor Start: 06/03/24 17:54 Freq: Status: Active Protocol: Document 06/06/24 13:08 LRN (Rec: 06/06/24 15:44 LRN [id number]) Pelvic Floor Assessment Urine Other Urinary Symptoms No urinary symptoms Bowel Other Bowel Symptoms BM 3x/week. [place] Stool Chart Comments Type 6. Pelvic Clock Pelvic Clock 12-3 Tenderness Pelvic Clock 3-6 Tenderness Pelvic Clock 6-9 Tenderness Pelvic Clock 9-12 Tenderness Prolapse Cystocele Grade 3 Perineal Descent Resting Present Bearing Present Contraction Ability Manual Muscle Testing Left 1 Manual Muscle Testing Right 1 Manual Muscle Testing Anterior 0 Manual Muscle Testing Posterior 2 Muscle Endurance (Seconds) 0 Number of Quick Contractions In 10 1 Seconds Comments Pelvic Floor Comments Redness at upper inner fold of the Labia Majora. PT-OP-J Posture/Palpation/Skin Start: 06/03/24 17:54 Freq: Status: Active Protocol: Document 06/06/24 13:08 LRN (Rec: 06/06/24 15:44 LRN [id number]) Posture Evaluation Position Standing Head/C-Spine Posture Forward Head L-Spine Posture Increased Lordosis Shoulder Posture (R) Elevated Pelvis Posture Anteriorly Tilted,(R) ASIS Posterior Knee Posture (L) Genu Varus,(R) Genu Varus Comments Posture Comments Straightened upper T/S. PT-OP-K Range of Motion Start: 06/03/24 17:54 Freq: Status: Active Protocol: Document 06/06/24 13:08 LRN (Rec: 06/06/24 15:44 LRN [id number]) Lumbar Spine Range of Motion Lumbar Spine Active Degrees Testing Position Standing Flexion 63 Extension 12 Rotation Left 50 Rotation Right 50 Lateral Flexion Left 18 Lateral Flexion Right 18 Hip Goniometric Range of Motion Hip Right Passive Testing Position Supine Internal Rotation 55 External Rotation 40 Left Passive Testing Position Supine Internal Rotation 50 External Rotation 40 PT-OP-M Strength Start: 06/03/24 17:54 Freq: Status: Active Protocol: Document 06/06/24 13:08 LRN (Rec: 06/06/24 15:44 LRN [id number]) Trunk Strength Trunk Manual Muscle Testing Core Stabilization Pt was not able to maintain core stability with MMT of LE' s. Hip Strength Hip Manual Muscle Testing Right Extension (S1) 3 Fair Internal Rotation 3 Fair Comments Strength is 5/5 except as indicated above. Left Flexion (L2) 4 Good Extension (S1) 3 Fair Adduction 3+ Fair+ Internal Rotation 3 Fair Comments Strength is 5/5 except as indicated above. PT-OP-Q Treatments Start: 06/03/24 17:54 Freq: Status: Active Protocol: Document 07/11/24 14:38 LRN (Rec: 07/11/24 15:53 LRN [id number]) Therapeutic Exercises Supine Exercises Hamstring stretch Side bilateral Fig 4 stretch Side bilateral Reps/Minutes 60 sec interminttent hold Prone Exercises Hip Ext Reps/Minutes Single leg lift cause pain in abdomen Comments Pt reporting pain from period Sitting Exercises Hip ER Sitting Exercise Name Foot swing inward Side bilateral Reps/Minutes 10x each Hip IR Sitting Exercise Name Knees together, feet swing out Side bilateral Reps/Minutes 10x Hip AD saw Equipment Used Pillow Reps/Minutes 5 SH Self-Care/Home Management Treatment Education Other Education Pt requests sheets to help guide her. Discussed pt's PF health and it was reported she was prescribed pills that they usually prescribed her for infection. Discussed and recommended a lot of use of lubricants for intercourse to reduce pain. Discussed pt to have a friend read to her the handout on Genital/Vulvar care. Activities Self-Care/Home Management Activities Verbal instructions given to patient in Nepali, interpreted through medical interpreter in [place]. Pt took notes for self care in her own [place] language. Issued handout: Genital/ Vulvar Care, pt to have friend read to her. HEP: Stretches: Supine Hamstring & Fig 4; Strengthening: Isometric sitting hip AD, sitting hip IR /ER/extension. PT-OP-T Assessment and Plan Start: 06/03/24 17:54 Freq: Status: Active Protocol: Document 07/11/24 14:38 LRN (Rec: 07/11/24 15:53 LRN [id number]) Physical Therapy Assessment Goals Three Impairment Lower abdominal pain limiting standing time and ability to attend work. Short Term Goal (STG) Pt educated in proper standing posture to decrease strain at pubic symphysis. STG Duration 07/04/24 (07/11/24: NOT MET GOAL) Alf Goal (LTG) Improve abdominal soft tissue mobility and pelvic stability to minimze lower abdominal pain and pubic symphysis pain to 0-2/10, with pt able to tolerate baseline standing for her job. 07/11/24: Pt no longer working and she reports no change in her condition. LTG Duration 12 wks-08/29/24 (07/11/24: NOT MET GOAL) Two Impairment Pain with intercourse Short Term Goal (STG) Pt will be educated in pain management for intercourse ( excessive use of lubrication), and cream for tissue health. 07/11/24: Pt I/S in use of lubrication for decreasing pain with intercourse. STG Duration 6 wks-07/18/24 (07/11/24: Partially met goal) Alf Goal (LTG) Decrease lower abdominal pain with intercourse, with pt able to tolerate activity without pain. LTG Duration 12 wks-08/29/24 (07/11/24: NOT MET GOAL) One Impairment Lacks appropriate self care HEP. Short Term Goal (STG) Pt educated and will demonstrate log roll transfer to lessen core abdominal pressure and educated in proper body mechanics for ADLs . 06/06/24: Pt educated in log roll method for supine>sit. 06/13/24: Reviewed log roll method with breath/Kegel. 06/20/24: Pt educated in correct body mechanics for lifting and moving objects for work. STG Duration 07/04/24 (07/11/24: Partially met goal, no body mech educ for ADLs) Alf Goal (LTG) Pt will be independent in appropriate self care HEP of PF/core strengthening & hip ( IR) stretches. 06/13/24: HEP: TA strengthening in sup, sit, 4 pt. 06/20/24: HEP: HEP: 4 pt TA tightening, and BRO trunk extension. 06/23/24: HEP: Clamshell/ Reverse clam is not painful. HEP: Sidelie Clamshell and sitting BKFO to be done in supine or sit, and supine LE roll in/out. Issued Lev 1 TBand for HEP. 07/10/24: HEP: Hip fig 4 & Hamstring stretch; strengthening: hip AD/IR/ER/ extension. 07/11/24: Issued handout: Genital/Vulvar Care, pt to have friend read to her. HEP: Stretches: Supine Hamstring & Fig 4; Strengthening: Isometric sitting hip AD, sitting hip IR /ER/extension. LTG Duration 12 wks-08/29/24 progressed 06/23/24 Assessment Summary Assessment Pt was seen for 4 treatment visits for initial tenderness around her superficial/deep PF around the clock and her mid/ lower abdomen, with R labia majora fold tenderness/redness , very weak PF, core & hip muscles. Postural changes of increased lordosis and possible pelvic obliquity (L SIJ is posterior). Extra time was always needed for [place] interpretation throughout treatment session. The pt attended, requesting discharge from therapy due to loss of job, no car transportation and stress. She wanted handouts of what she can do to progress at home; therefore internal assessment not performed. Through an medical interpreter, the pt was instructed in hip stretches, and strengthening, reviewed her HEP that she is to continue of core and PF ex' s, educated in vulvar/genital care, and instructed in ways to decrease pain with intercourse through medical care of her PF (possible estrodial cream if pain persists after vaginal infection clears) and use of more lubrication. The pt shows improvement in pubic symphysis stability as she is able to perform hip ER/ hamstring stretch and active hip IR/ER w/o pain. She had lower abdominal pain with hip ext, possibly due to her period onset causing lower abdominal pain. The pt has made improvement of symptoms of lessening pain at her pubic symphysis with hip ROM and strengthening, but she reports feels she has no change in her overall condition. The pt did not complete her program; therefore it is expected that she will need physical therapy in the future, as she continues to have LB and PF pain. Physical Therapy Plan Frequency and Duration Frequency of Treatment 1x/Week Duration of treatment (weeks) 12 Plan of Care Start Date 06/06/24 Plan of Care End Date 08/29/24 Discharge Physical Therapy Discharge Reasons Patient Request Discharge Comments Pt did not complete rehab program and symptoms persist. The pt will probably need physical therapy in the future for pelvic floor and possibly LB rehabilitation.
== END 2024-07-17 14:09 | disposition home or self-care (01) ==
LOC: PHYS 14:30
PROVIDERS: Family Provider Physician Assistant; PCP Physician Assistant; Referring Provider Physician Assistant; Visit Provider Physician Assistant
DX: N81.10 Cystocele, unspecified (principal)
CPT/HCPCS: 97110; 97162; 97530; 97535